=== PATIENT | female | born 1960 | race Caucasian/White ===

== ENCOUNTER → 2019-11-15 | Outpatient (CLI) | payer BC, SELFPAY | END | disposition home or self-care (01) | LOC: LABSPEC 11-16 07:36 | PROVIDERS: Visit Provider Family Medicine Hospice and Palliative Medicine | DX: Z11.59 Encounter for screening for other viral diseases (principal) | CPT/HCPCS: 87635; G2023; U0003 ==

== ENCOUNTER → 2023-08-17 | Outpatient (CLI) | payer OTHER, SELFPAY ==
--- NOTE | 2023-08-17 13:43 | CT_ITS ---
STUDY: CT ABDOMEN AND PELVIS WITH AND WITHOUT CONTRAST REASON FOR EXAM: Female, 63 years old. UTI. RADIATION DOSAGE (If Supplied By Facility): CTDIvol = ( 12.93 ) mGy, DLP = ( 1798.59 ) mGycm TECHNIQUE: Transaxial images were obtained from the dome of the diaphragm to the symphysis pubis without oral contrast. IV 100mL Isovue-300 was administered. Sagittal and coronal images were reconstructed. Individualized dose optimization techniques were used for this CT. COMPARISON: None. FINDINGS: The visualized lung bases are unremarkable. Coronary artery calcification. Normal liver. Sludge or small gallstones are seen in the gallbladder lumen. Normal spleen. Normal pancreas. There is a small, circumscribed, smooth, low attenuation right adrenal mass, consistent with an adrenal adenoma. This measures 1.4 cm. Normal left adrenal gland. A cortical scar is seen in the lateral aspect of the midportion of the right kidney. Normal left kidney. Normal visualized stomach. Normal small intestine. Questionable 3.8 cm mass in the sigmoid colon. Correlation with colonoscopy is recommended. There are multiple colonic diverticula consistent with diverticulosis. The appendix is visualized and appears normal. There is diffuse atherosclerotic calcification of the abdominal aorta, without a demonstrated aneurysm. Normal inferior vena cava. Normal retroperitoneum. Tiny air bubble is seen along the anterior aspect of the urinary bladder. If there has been no fully catheter manipulation, a colovesical fistula should be ruled out. Calcified fibroid uterus. Normal abdominal wall. There are degenerative changes of the visualized lumbar spine. Grade 1 anterolisthesis of L4 on L5 with disc space narrowing and disc degeneration. CT/CT Abd/Pelvis W/WO Contrast IMPRESSION: Cortical scar along the right midportion of the kidney. Diffuse sigmoid diverticulosis with possible mass in the sigmoid colon. Endoscopic correlation recommended. Electronically Signed: Hubert Martinez MD at 16:08 EDT ,
[2023-08-17 14:08] LABS: CREATININE FINGERSTICK < 1.0 mg/dL (0.55-1.02); EGFR FINGERSTICK > 60.0000 mL/min (>60)
== END | disposition home or self-care (01) ==
PROVIDERS: PCP Nurse Practitioner Family; Referring Provider Urology; Visit Provider Urology
DX: N32.9 Bladder disorder, unspecified (principal); N39.0 Urinary tract infection, site not specified
CPT/HCPCS: 74178; Q9967